=== PATIENT | female | born 1995 | race Caucasian/White ===

== ENCOUNTER 2019-01-07 08:52 | Emergency (ER) | payer OTHER ==
[~2019-01-07] VITALS: Ht 167.6 cm; Wt 65.8 kg
[2019-01-07] MEDS ORDERED: NAPROSYN500 MG PO (08:59)
[2019-01-07] MEDS ORDERED: TRAMADOL 50 MG50 MG PO (09:15)
[2019-01-07] MEDS ORDERED: AMOXICILLIN 50500 MG PO (09:15)
[2019-01-07 09:33] VITALS: BP 134/81
== END 2019-01-07 09:35 | disposition home or self-care (01) ==
LOC: M.ERS 08:52
DX: K04.7 Periapical abscess without sinus (principal); K02.9 Dental caries, unspecified